=== PATIENT | female | born 1955 | race Caucasian/White ===

== ENCOUNTER 2020-05-03 08:49 | Emergency (ER) | payer OTHER, MEDICARE ==
[~2020-05-03] VITALS: Ht 170.2 cm; Wt 100.0 kg
[2020-05-03 08:52] VITALS: BP 165/79
[2020-05-03] MEDS ORDERED: LIDOcaine 5% patch TP ONE (09:15)
[2020-05-03] MEDS ORDERED: METH4TAB81 PO (09:19)
[2020-05-03] MEDS ORDERED: HYDR-4383 PO (09:19)
== END 2020-05-03 09:37 | disposition home or self-care (01) ==
LOC: ER 08:50
DX: M77.8 Other enthesopathies, not elsewhere classified (principal); R50.9 Fever, unspecified
CPT/HCPCS: 99283